=== PATIENT | male | born 1965 | race Caucasian/White ===

== ENCOUNTER 2024-03-04 11:22 | Emergency (ER) | payer MEDICAID ==
[~2024-03-04] VITALS: Ht 175.3 cm; Wt 85.0 kg
[2024-03-04 11:29] VITALS: O2SAT 95
[2024-03-04] MEDS: KETOROLAC 30MG/ML VIAL IM STA (13:00)
[2024-03-04 13:08] LABS: CLARITY URINE CLEAR (CLEAR); COLOR URINE YELLOW (YELLOW); GLUCOSE URINE NEGATIVE (NEGATIVE); KETONES URINE NEGATIVE (NEGATIVE); LEUKOCYTE ESTERASE URINE NEGATIVE (NEGATIVE); NITRITE URINE NEGATIVE (NEGATIVE); OCCULT BLOOD URINE NEGATIVE (NEGATIVE); PH URINE 6.5 (4.5-8.0); PROTEIN URINE TRACE (NEGATIVE); SPECIFIC GRAVITY URINE 1.026 (1.005-1.030)
[2024-03-04 13:21] LABS: RBC URINE 0-2 /hpf (0-2); SQUAMOUS EPITHELIAL CELL URINE NONE SEEN /lpf (RARE/1+); WBC URINE 0-2 /hpf (0-2); YEAST URINE NONE SEEN
[2024-03-04 13:22] LABS: BACTERIA URINE 1+
[2024-03-04] MEDS ORDERED: NAPR-681 MT (14:24)
[2024-03-04] MEDS ORDERED: CYCL5TAB MT (14:24)
[2024-03-04 14:39] VITALS: BP 120/71; PULSE 69; RESP 17; TEMP 36.66960; O2SAT 100
== END 2024-03-04 14:41 | disposition home or self-care (01) ==
LOC: ER 11:22
DX: M51.36 Other intervertebral disc degeneration, lumbar region (principal); M54.50 Low back pain, unspecified
CPT/HCPCS: 81003; 72100; 96372; 99284; J1885; Z7610

== ENCOUNTER 2025-01-04 14:13 | Emergency (ER) | payer MEDICAID ==
[~2025-01-04] VITALS: Ht 170.2 cm; Wt 85.0 kg
[~2025-01-04 14:13] MED LIST: CYCL5TAB3 MT; NAPR-681 MT
[2025-01-04 14:43] VITALS: O2SAT 98
[2025-01-04] MEDS ORDERED: LIDO-53 TP (16:07)
[2025-01-04] MEDS ORDERED: IBUP-2029 MT (16:07)
[2025-01-04] MEDS ORDERED: METH4TAB95 MT (16:07)
[2025-01-04] MEDS: LIDOCAINE 5% PATCH TOP SCH (16:37)
[2025-01-04] MEDS: KETOROLAC 15MG/ML VIAL IM ONE (16:37)
[2025-01-04 16:41] VITALS: BP 151/82; PULSE 60; RESP 14; TEMP 36.9; O2SAT 100
== END 2025-01-04 16:45 | disposition home or self-care (01) ==
LOC: ER 14:13
DX: M54.31 Sciatica, right side (principal); Z79.899 Other long term (current) drug therapy
CPT/HCPCS: 99283; 96372; J1885